=== PATIENT | female | born 1950 | race Caucasian/White ===

== ENCOUNTER 2022-07-05 15:40 | Emergency (ER) | payer OTHER, SELFPAY ==
--- NOTE | ~2022-07-05 | CT_ITS ---
EXAMINATION: CT facial & cervical spine wo DATE: 07/05/2022 16:34 INDICATION: Fell, striking face on concrete,multi cuts, scrapes,bruising TECHNIQUE: Computed tomography (CT) of the maxillofacial region and cervical spine was performed with out intravenous contrast. Automated exposure control and iterative reconstruction technique were empl oyed. The dose-length product was 162.00 mGy-cm. COMPARISON: None FINDINGS: CERVICAL: Vertebral Body Alignment: Reversed lordosis centered at C5-6. 2 mm anterolisthesis at C4-5 likely on a degenerative basis. Craniocervical and atlantoaxial alignment: Moderate degenerative change. Alignment intact. Osseous structures/fracture: Diffuse sclerotic lesions in the cervical spine and bones of the upper c hest. No evidence of acute fracture. Cervical soft tissues: The paraspinal soft tissues planes are maintained. Biapical pleural scarring. Degenerative changes: Degenerative changes, without severe neural foraminal or central canal narrowin g. FACE: Soft Tissues: Soft tissue swelling over the chin and left forehead. Laceration at the bridge of the nose. Small volume hemorrhage in the anterior nasal passageways. No septal hematoma detected. Facial bones: No acute fracture. No lytic or blastic process. Eyes: The globes are intact. The soft tissue planes of the orbits are maintained. Paranasal Sinuses: Chronic pansinusitis. Foreign Bodies: No radiopaque foreign bodies. Other Findings: Periodontal disease. Postsurgical changes in the left maxillary sinus. IMPRESSION: No acute fracture or traumatic malalignment in the cervical spine. Diffuse sclerotic osseous lesions, correlate with history of malignancy. No acute facial bone fracture. Reviewed, dictated and finalized at location K. IMPRESSION: No acute fracture or traumatic malalignment in the cervical spine. Diffuse scle rotic osseous lesions, correlate with history of malignancy. No acute facial bone fracture.
--- NOTE | ~2022-07-05 | CT_ITS ---
EXAMINATION: CT brain wo con DATE: 07/05/2022 16:33 INDICATION: FALL STRIKING FACE ON CONCRETE . TECHNIQUE: Computed tomography (CT) of the head was performed without intravenous contrast. The mA wa s adjusted according to patient size. Iterative reconstruction technique was employed. The dose-lengt h product was 605.33 mGy-cm. COMPARISON: None. FINDINGS: No acute intracranial hemorrhage or extra-axial fluid collection. No hydrocephalus, mass, or herniation. No acute ischemic infarct. Unremarkable dural venous sinus attenuation. No acute osseous abnormality. Opacification and osseous sclerosis involving the frontal ethmoid and maxillary sinuses. Trace bilate ral mastoid fluid. Moderate atrophy and mild chronic white matter change. Atherosclerotic intracranial calcification. Bi lateral lens replacements. IMPRESSION: No acute intracranial process. Chronic pansinusitis. Reviewed, dictated and finalized at location K.
[2022-07-05 15:40] VITALS: BP 132/78; PULSE 90; RESP 18; TEMP 36.2; O2SAT 100
--- NOTE | 2022-07-05 16:02 | ED.FALL ---
HPI - Fall General Chief Complaint: Fall Stated Complaint: fall/ facial injury Time Seen by Provider: 07/05/22 15:46 History of Present Illness HPI Narrative: This is a 71-year-old female with past medical history of breast cancer and hypertension, who presents to the emergency department after a fall at home. The patient states she was outside taking pictures, when she tripped on a stair and fell, striking her face on flat concrete. She denies loss of consciousness and states she nosebleed from proximal minutes prior to arrival. She complains of minimal pain. She denies taking blood thinners and has no pain elsewhere. Related Data Home Medications Medication Instructions Recorded Confirmed aspirin 81 mg tablet,delayed 81 mg PO DAILY 07/05/22 07/05/22 release capecitabine 500 mg tablet See Rx Instructions .Route .COMPLEX 07/05/22 07/05/22 carvedilol 6.25 mg tablet (Coreg) 6.25 mg PO BID 07/05/22 07/05/22 cetirizine 10 mg tablet (Zyrtec) 10 mg PO DAILY 07/05/22 07/05/22 cholecalciferol (vitamin D3) 50 100 mcg PO DAILY 07/05/22 07/05/22 mcg (2,000 unit) capsule (Vitamin D3) cyanocobalamin (vitamin B-12) 1,000 mcg PO DAILY 07/05/22 07/05/22 1,000 mcg tablet diclofenac sodium 1 % topical gel 4 g topical QID 07/05/22 07/05/22 ferrous sulfate 325 mg (65 mg 325 mg PO DAILY 07/05/22 07/05/22 iron) tablet fluticasone propionate 50 2 spray intranasal DAILY 07/05/22 07/05/22 mcg/actuation nasal spray,suspension hydrocodone 5 mg-acetaminophen 325 1 tablet PO Q4H PRN Pain (Scale 07/05/22 07/05/22 mg tablet Score 4-6) lidocaine-prilocaine 2.5 %-2.5 % 1 applic topical DIRECTED PRN 07/05/22 07/05/22 topical cream Pain, Mild meloxicam 7.5 mg tablet 7.5 mg PO DAILY 07/05/22 07/05/22 omeprazole 20 mg capsule,delayed 20 mg PO DAILY 07/05/22 07/05/22 release ondansetron HCl 4 mg tablet 4 mg PO PRN PRN Nausea 07/05/22 07/05/22 sertraline 100 mg tablet 150 mg PO DAILY 07/05/22 07/05/22 spironolactone 25 mg tablet 12.5 mg PO DAILY 07/05/22 07/05/22 torsemide 10 mg tablet 20 mg PO DAILY 07/05/22 07/05/22 Allergies Allergy/AdvReac Type Severity Reaction Status Date / Time No Known Allergies Allergy Verified 07/05/22 15:50 Review of Systems Review of Systems: CONSTITUTIONAL: Denies fever, chills, or sweats. EYES: Denies visual changes, redness, or discharge. ENT: Epistaxis denies rhinorrhea, congestion, sore throat, or otalgia. CARDIOVASCULAR: Denies chest pain, palpitations, or edema. RESPIRATORY: Denies cough or dyspnea. GASTROINTESTINAL: Denies abdominal pain, nausea, vomiting, or diarrhea. GENITOURINARY: Denies dysuria or hematuria. SKIN: Abrasion of face and laceration of nose Denies rash or itching. MUSCULOSKELETAL: Denies back pain, joint pain, or myalgia. NEUROLOGIC: Denies headache, numbness, dizziness, or weakness. PSYCHIATRIC: Denies anxiety or depression. [facility] Past Medical History Medical History (Updated 07/05/22 @ 16:08 by Paul Mortensen MD) Breast cancer Hypertension Social History Social History (Updated 07/05/22 @ 16:05 by Paul Mortensen MD) Smoking status: Never smoker Alcohol intake: current Substance use: never Exam Narrative: GENERAL: Well-developed, well-nourished, and in no acute distress. HEAD: Normocephalic, multiple abrasions, primarily over the left side of the face there is a superficial 1 cm laceration over the bridge of the nose without exposed bone. There is a small hematoma over the anterior left forehead EYES: PERRLA and EOMI. ENT: Epistaxis of the right nares, appears to be anterior. Nares otherwise clear, no rhinorrhea. Mucous membranes moist. Oropharynx without tonsillar hypertrophy exudate or other lesions. NECK: Supple. No adenopathy or masses. No carotid bruits or JVD. No midline spine tenderness to palpation, no step-off or crepitus CHEST: Clear to auscultation. No respiratory distress. No wheezes rales or rhonchi HEART: Regular rate and rhyt
[2022-07-05] MEDS: TETANUS,DIPHTHERIA,AC PERTUSSIS ADULT 0.5 ML (ADACEL) IM (16:29)
[2022-07-05] MEDS: OXYMETAZOLINE HCL 0.05% NAS 15 ML BTL (*BKC) 1 SPRAY (16:46)
--- NOTE | 2022-07-05 17:00 | PC.NURSE ---
surgicell packing per dr grover, unsuccessful with stopping the bleeding from right nare. afrin spray and another surgicell packing inserted to right nares.
--- NOTE | 2022-07-05 17:17 | PC.NURSE ---
1710 rhino rocket inserted to right nares per dr grover, pt tolerated well. pt did spit up large clot after rhino rocket inserted.
[2022-07-05 17:32] VITALS: BP 154/87; PULSE 93; RESP 20; TEMP 36.9; O2SAT 98
--- NOTE | 2022-07-05 17:53 | PC.NURSE ---
1730 pt ambulated to bathroom. noted bleeding from right nares with movement. rhino rocket removed per dr grover and epistat nasal catheter inserted per protocol per dr grover.
[2022-07-05] MEDS: NEOMYCIN/POLYMYXIN/BACITRACIN OINTMENT PACKET 1 PACKET TOPICAL (17:59)
[2022-07-05] MEDS: oxyCODONE/ACETAMINOPHEN (*CRX) 5-325 MG TABLET 1 TABLET PO (18:09)
[2022-07-05 18:23] VITALS: BP 153/96; PULSE 78; RESP 20; TEMP 36.9; O2SAT 98
== END 2022-07-05 18:25 | disposition home or self-care (01) ==
PROVIDERS: Emergency Provider Preventive Medicine Aerospace Medicine
DX: S01.21XA Laceration without foreign body of nose, initial encounter (principal); R04.0 Epistaxis; I10 Essential (primary) hypertension; Z79.82 Long term (current) use of aspirin; Z79.1 Long term (current) use of non-steroidal anti-inflammatories (NSAID); Z85.3 Personal history of malignant neoplasm of breast; Z79.891 Long term (current) use of opiate analgesic; Z23 Encounter for immunization; W01.0XXA Fall on same level from slipping, tripping and stumbling without subsequent striking against object, initial encounter; Y92.008 Other place in unspecified non-institutional (private) residence as the place of occurrence of the external cause
CPT/HCPCS: 30901; 70450; 70486; 72125; 90471; 90715; 99284; A9270